=== PATIENT | male | born 1975 | race Asian ===

== ENCOUNTER 2017-01-14 06:27 | Day surgery (SDC) | payer BC ==
[~2017-01-14] VITALS: Ht 177.8 cm; Wt 71.3 kg
[2017-01-14 07:25] VITALS: Ht 177.8 cm; Wt 71.3 kg
[2017-01-14 07:34] VITALS: BP 122/78; PULSE 67; RESP 22
[2017-01-14] MEDS ORDERED: MIDAZOLAM 1 MG/ML 2 ML INJ ONE ×3 (09:05→09:06)
[2017-01-14] MEDS ORDERED: FENTAnyl 50 MCG/ML VIAL ONE (09:06)
[2017-01-14 09:25] VITALS: BP 118/80; PULSE 59; RESP 20
--- NOTE | 2017-01-18 09:36 | GILP ---
DATE OF PROCEDURE: 01/14/2017 PROCEDURES: Esophagogastroduodenoscopy and colonoscopy. INDICATION: A 41-year-old male undergoing this procedure for abdominal pain and rectal bleeding. The risks of the procedure, related complications, anesthetic risk, alternatives discussed and informed consent was obtained. ESOPHAGOGASTRODUODENOSCOPY: The patient was brought to the GI lab and sedated with Versed 5 mg, fentanyl 100 mg. After optimal sedation the scope was passed as much into the esophagus. He had grade 2 varicose vein, 2 such columns were identified especially in the midportion of the esophagus. Z-line was at 39 cm. Stomach mucosa revealed gastritis with 3 to 4 random biopsies obtained to rule out H. pylori infection. Retroflexion done and no varicose vein identified. Duodenum first and second part including ampulla appeared normal. Scope was removed with good patient tolerance. IMPRESSION: 1. Normal esophagus. 2. Grade 2 varicose veins, 2 such columns were identified. 3. Normal Z-line at 39 cm. 4. Gastritis, chronic. 5. Normal duodenum including ampulla. PLAN: Review the histopathology. COLONOSCOPY: Patient was turned around. The scope was passed as much into the rectum, advanced to sigmoid, descending, transverse colon all the way into the cecum, and finally into terminal ileum. Terminal ileum was normal. Appendiceal orifice was normal. The right side of the colon had 5 to 10 percent stool. The rest of the colon appeared grossly normal except some liquid stool in the left side of the colon. No gross lesion was identified. Retroflexion done, hemorrhoid seen. Scope was straightened out and removed with good patient tolerance. IMPRESSION: 1. Hemorrhoids. 2. Negative all the way into the cecum. 3. Negative to terminal ileum. 4. Preparation was inadequate. PLAN: Stay on high-fiber diet. If the pain is persistent, definitely needs a CAT scan of the abdomen and pelvis to rule out gallstone or pancreatic pathology. Dictated By: Miguel Gutierrez MD /chanelle/sydnee /Document#: [id number]
== END 2017-01-14 09:22 | disposition home or self-care (01) ==
LOC: GIL 06:27
PROVIDERS: ATTEND Internal Medicine Gastroenterology
DX: K29.50 Unspecified chronic gastritis without bleeding (principal); I85.00 Esophageal varices without bleeding; K64.9 Unspecified hemorrhoids; K62.5 Hemorrhage of anus and rectum
CPT/HCPCS: 43239; 45378; 88305; J2250; J3010; Z7610; 88312